=== PATIENT | female | born 1980 | race Two or more races ===

== ENCOUNTER 2022-10-23 13:00 | Emergency (ER) | payer OTHER ==
[~2022-10-23] VITALS: Ht 160 cm; Wt 48.1 kg
[2022-10-23] MEDS ORDERED: TOPAMAX50 MG (13:09)
[2022-10-23] MEDS ORDERED: [UNRECOGNIZED DRUG - OTHER] (13:10)
[2022-10-23] MEDS ORDERED: EMGALITY P120 MG/1 M SQ (13:11)
[2022-10-23] MEDS ORDERED: KETO10TA2 PO (19:19)
[2022-10-23] MEDS ORDERED: TAMS0.4C PO (19:22)
== END 2022-10-23 19:25 | disposition home or self-care (01) ==
LOC: ER 13:00
DX: R10.2 Pelvic and perineal pain (principal); R11.10 Vomiting, unspecified